=== PATIENT | female | born 1970 | race Caucasian/White ===

== ENCOUNTER 2017-05-15 14:04 | Emergency (ER) | payer BC ==
[2017-05-15] MEDS ORDERED: Ondansetron 4 MG/2 ML SDV ONE (14:36)
[2017-05-15] MEDS ORDERED: Morphine 4 MG/ML Syringe ONE (14:37)
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
[2017-05-15] MEDS ORDERED: Aspirin 81 MG Tab.Chew PO ONE (15:00)
[2017-05-15] MEDS ORDERED: Clopidogrel 75 MG Tab PO ONE (15:00)
[2017-05-15] MEDS ORDERED: Morphine 4 MG/ML Syringe IVPUSH ONE (15:01)
[2017-05-15] MEDS ORDERED: Ondansetron 4 MG/2 ML SDV IVPUSH ONE (15:01)
[2017-05-15] MEDS ORDERED: Nitroglycerin 0.4 MG Tab.SL SL ONE (15:01)
[2017-05-15] MEDS ORDERED: Heparin Sodium 5,000 Units/ML Vial IVPUSH ONE (15:33)
[2017-05-15 15:35] VITALS: BP 142/79
== END 2017-05-15 15:00 ==
LOC: JP.ED 14:04
DX: I21.3 ST elevation (STEMI) myocardial infarction of unspecified site (principal)
CPT/HCPCS: 36415; 80053; 84484; 85025; 93005; 96374; 96375; 99285; A9270; J1644; J2270; J2405